=== PATIENT | female | born 1980 | race Caucasian/White ===

== ENCOUNTER 2018-05-29 11:37 | Day surgery (SDC) | payer BC, OTHER ==
[~2018-05-29 11:37] MED LIST: BUPIVACAINE HCL/PF (5 MG/ML) 30 ML VIAL IJ ONE; ceFAZolin SODIUM 1 GM VIAL IVPB ONE
--- NOTE | 2018-05-29 11:58 | PDOC ---
History of Present Illness - General Chief Complaint: Nausea/Vomiting Stated Complaint: NAUSEA/VOMITING Time Seen by Provider: 05/29/18 11:48 - History of Present Illness Initial Comments: 05/29/18 12:50 37 years old past medical history significant for anemia status post lap band 2007 presents to the ED were progressively worsening abdominal discomfort. Patient was seen and evaluated by her bariatric surgeon Dr. Miller and is scheduled for lap band removal today. Presents to the ED for medical screening examination and preoperative clearance Patient complaining of abdominal discomfort which is epigastric in nature persistent constant Past History - Past Medical History Allergies/Adverse Reactions: Allergies Allergy/AdvReac Type Severity Reaction Status Date / Time latex Allergy Mild Rash Verified 05/29/18 12:19 Home Medications: Ambulatory Orders Cyanocobalamin Vit B-12 Inj. [Redisol] 1,000 mcg IJ MONTHLY 05/29/18 Famotidine [Pepcid -] 20 mg PO BID #14 tablet 05/29/18 Ondansetron HCl [Zofran] 8 mg PO BID #30 tablet 05/29/18 Oxycodone HCl/Acetaminophen [Percocet 5-325 mg Tablet] 1 - 2 tab PO Q6H PRN #20 tab MDD 8 05/29/18 Anemia: Yes Asthma: No Cancer: No Cardiac Disorders: No COPD: No Diabetes: No HTN: No Seizures: No Thyroid Disease: No - Surgical History Cholecystectomy: Yes - Reproductive History (#): 1 Para: 0 - Suicide/Smoking/Psychosocial Hx Smoking History: Never smoked Have you smoked in the past 12 months: No Hx Alcohol Use: No Drug/Substance Use Hx: No Substance Use Type: None Hx Substance Use Treatment: No Review of Systems - Review of Systems Comments:: 05/29/18 18:29 ROS: A complete review of 10 out of 10 review of systems is taken and is negative apart from what is previously mentioned below and in the HPI. *Physical Exam - Physical Exam Comments: 05/29/18 18:29 Vitals: Triage Vital signs reviewed General Appearance: no acute distress, well nourished well developed, Head: Atraumatic, Eyes: Pupils equal reactive round, extraocular movement intact Neck: Supple;No Nucal rigidity Chest Wall: Nontender Cardiac: Regular rate and rhythym, no murmurs, no rubs, no gallops, Lungs: Clear to auscultation bilateral, good air movement bilaterally, Abdomen: Soft, non distended, normal bowel sounds, non tender to palpation Extremities: Full range of motion to all extremities, no cyanosis, clubbing, or edema Skin: Warm and dry, no rashes or lesions, no rash, no petechiae Psych: normal mood, normal affect ED Treatment Course - LABORATORY CBC & Chemistry Diagram: 05/29/18 11:24 05/29/18 11:24 Medical Decision Making - Medical Decision Making 05/29/18 18:30 Case d/w Dr. Miller. We'll send preop labs and patient will transfer to or for lap band removal *DC/Admit/Observation/Transfer Diagnosis at time of Disposition: Abdominal pain Qualifiers: Abdominal location: unspecified location Qualified Code(s): R10.9 - Unspecified abdominal pain - Discharge Dispostion Condition at time of disposition: Good Decision to Admit order: Yes - Prescriptions - Referrals - Patient Instructions - Post Discharge Activity
[2018-05-29 12:18] VITALS: BMI 31.6
[2018-05-29 12:33] LABS: BASO % 0.7 % (0-2.0); EOS % 1.1 % (0-4.5); HEMATOCRIT 40.4 % (32.4-45.2); HEMOGLOBIN 13.1 GM/dL (10.7-15.3); LYMPH % 23.2 % (8-40); MCH 27.4 pg (25.7-33.7); MCHC 32.5 g/dl (32.0-36.0); MEAN CELL VOLUME 84.2 fl (80-96); MEAN PLT VOLUME 8.1 fl (7.5-11.1); MONO % 9.2 % (3.8-10.2); NEUT % 65.8 % (42.8-82.8); PLATELET COUNT 314 K/MM3 (134-434); RDW 13.2 % (11.6-15.6); WHITE BLOOD COUNT 7.5 K/mm3 (4.0-10.0)
[2018-05-29 12:44] LABS: INR 1.05 (0.82-1.09); PROTHROMBIN TIME (PATIENT) 11.9 SEC (9.7-13.0)
[2018-05-29 12:46] LABS: ACTIVATED PTT 30.3 SECONDS (25.2-36.5)
[2018-05-29 12:53] LABS: ALBUMIN 3.8 g/dl (3.4-5.0); ANION GAP 6 (8-16); BILIRUBIN,TOTAL 0.5 mg/dL (0.2-1.0); BLOOD UREA NITROGEN 11 mg/dL (7-18); CALCIUM 8.7 mg/dL (8.5-10.1); CHLORIDE 108 mmol/L (98-107); CO2 30 mmol/L (21-32); CREATININE 0.6 mg/dL (0.55-1.02); GLUCOSE,RANDOM 87 mg/dL (74-106); POTASSIUM 4.2 mmol/L (3.5-5.1); SGOT/AST 9 U/L (15-37); SGPT/ALT 15 U/L (12-78); SODIUM 144 mmol/L (136-145); TOT PROT 7.3 g/dl (6.4-8.2)
[2018-05-29 12:54] LABS: ALK PHOS 76 U/L (45-117)
[2018-05-29] MEDS ORDERED: MIDAZOLAM HCL 2 MG/2 ML SINGLE DOSE VIAL ONE (13:31)
[2018-05-29] MEDS ORDERED: ceFAZolin SODIUM 1 GM VIAL ONE (13:44)
[2018-05-29] MEDS ORDERED: DEXAMETHASONE SOD PHOSPHATE 4 MG/1 ML VIAL ONE (13:44)
[2018-05-29] MEDS ORDERED: ROCURONIUM BROMIDE 50 MG/5 ML VIAL ONE (13:49)
[2018-05-29] MEDS ORDERED: PROPOFOL 20 ML ONE (13:49)
[2018-05-29] MEDS ORDERED: ceFAZolin SODIUM 1 GM VIAL IVPB ONE (13:58)
[2018-05-29] MEDS ORDERED: GLYCOPYRROLATE 0.2 MG/1 ML VIAL ONE (15:16)
[2018-05-29] MEDS ORDERED: NEOSTIGMINE METHYLSULFATE 0.5 MG/ML - 10 ML MDV ONE (15:16)
[2018-05-29] MEDS ORDERED: BUPIVACAINE HCL/PF (5 MG/ML) 30 ML VIAL IJ ONE (15:18)
[2018-05-29] MEDS ORDERED: ONDANSETRON 4 MG/2 ML VIAL IVPUSH PRN (15:29)
[2018-05-29] MEDS ORDERED: oxyCODONE HCL 5 MG TABLET PO PRN (15:29)
[2018-05-29] MEDS ORDERED: LACTATED RINGERS SOLUTION 1,000 ML IV SCH (15:30)
--- NOTE | 2018-05-29 15:57 | OP ---
Operative Note - Note: Operative Date: 05/29/18 Pre-Operative Diagnosis: malfunctioning lap band, nausea and upper abdominal pain Operation: removal of lap band and port Surgeon: Mk Miller Economic History Teacher: Edith Worthy Anesthesiologist/SLUDGE MILL OPERATOR: Keith Paige Anesthesia: General Specimens Removed: band and port Estimated Blood Loss (mls): 20 Fluid Volume Replaced (mls): 1,000 Operative Report Dictated: Yes
--- NOTE | 2018-05-29 16:12 | SURG ---
Surgery Hot Knife Cutter Note Hot Knife Cutter: Edith Worthy PA-C Date of Service: 05/29/18 Diagnosis: malfunctioning lap band, nausea and upper abdominal pain Procedure: laparoscopic removal of lap band and port I was present for the entirety of the operative procedure. For further detail, please refer to operative report. Visit type - Case Type Case Type: ED Admission - Emergency Emergency Visit: Yes Care time: The patient presented to the Emergency Department on the above date and was hospitalized for further evaluation of their emergent condition. - New patient This patient is new to me today: Yes Date on this admission: 05/29/18
[2018-05-29] MEDS ORDERED: ONDANSETRON 4 MG/2 ML VIAL IVPUSH ONE (16:30)
[2018-05-29] MEDS ORDERED: ONDANSETRON 4 MG/2 ML VIAL ONE (16:45)
[2018-05-29] MEDS ORDERED: PROMETHAZINE HCL 25 MG/1 ML VIAL ONE (17:29)
[2018-05-29] MEDS ORDERED: PROMETHAZINE HCL 25 MG/1 ML VIAL IVPUSH ONE (17:35)
--- NOTE | 2018-05-29 17:46 | CONSULT ---
Consult Consult Specialty:: Bariatric Surgery Reason for Consultation:: Nausea/vomiting/epigastric pain - History of Present Illness History of Present Illness: 37 female s/p gastric baypass, s/p band over bypass presents with nausea/ vomiting and epigastric pain. Has had difficulty with her lap band + Dysphagia Symptoms are from her lap band and have persisted due to band malfunction No fevers/Chills - History Source History Provided By: Patient Limitations to Obtaining History: No Limitations - Past Medical History ...LMP: 07/14/13 - Past Surgical History Past Surgical History: Yes: Bariatric Surgery - Alcohol/Substance Use Hx Alcohol Use: No - Smoking History Smoking history: Never smoked Have you smoked in the past 12 months: No Home Medications - Allergies Allergies/Adverse Reactions: Allergies Allergy/AdvReac Type Severity Reaction Status Date / Time latex Allergy Mild Rash Verified 05/29/18 12:19 - Home Medications Home Medications: Ambulatory Orders Cyanocobalamin Vit B-12 Inj. [Redisol] 1,000 mcg IJ MONTHLY 05/29/18 Famotidine [Pepcid -] 20 mg PO BID #14 tablet 05/29/18 Ondansetron HCl [Zofran] 8 mg PO BID #30 tablet 05/29/18 Oxycodone HCl/Acetaminophen [Percocet 5-325 mg Tablet] 1 - 2 tab PO Q6H PRN #20 tab MDD 8 05/29/18 Family Disease History - Family Disease History Family History: Unremarkable Review of Systems - Review of Systems Constitutional: denies: Chills, Fever HENT: reports: No Symptoms Neck: reports: No Symptoms Cardiovascular: reports: No Symptoms Respiratory: reports: No Symptoms Gastrointestinal: reports: Abdominal Pain, Dysphagia, Nausea, Vomiting Neurological: reports: No Symptoms Pain Intensity: 3 Physical Exam Vital Signs: Vital Signs Temperature 98.0 F 05/29/18 16:45 Pulse Rate 72 05/29/18 16:45 Respiratory Rate 16 05/29/18 16:45 Blood Pressure 120/72 05/29/18 16:45 O2 Sat by Pulse Oximetry (%) 97 05/29/18 16:30 Constitutional: Yes: Calm HENT: Yes: WNL Neck: Yes: Supple Cardiovascular: Yes: Regular Rate and Rhythm Respiratory: Yes: CTA Bilaterally Gastrointestinal: Yes: Soft. No: Tenderness, Rebound Neurological: Yes: Alert, Oriented Labs: CBC, BMP 05/29/18 11:24 05/29/18 11:24 Problem List - Problems (1) Dysphagia Code(s): R13.10 - DYSPHAGIA, UNSPECIFIED Qualifiers: Dysphagia type: unspecified Qualified Code(s): R13.10 - Dysphagia, unspecified (2) Nausea & vomiting Code(s): R11.2 - NAUSEA WITH VOMITING, UNSPECIFIED Qualifiers: Vomiting type: unspecified (3) Gastric band malfunction Code(s): K95.09 - OTHER COMPLICATIONS OF GASTRIC BAND PROCEDURE (4) Epigastric abdominal pain Code(s): R10.13 - EPIGASTRIC PAIN Assessment/Plan Gastric band malfunction with symptoms For Laparoscopic possible open removal of gastric band, port and components, EGD
[2018-05-29 18:45] VITALS: BP 113/72; PULSE 68; TEMP 98
--- NOTE | 2018-05-29 20:11 | OP ---
DATE OF OPERATION: 05/29/2018 SURGEON: Eleuterio Miller MD SITE LEASING AGENT: SHAYLEE Hedrick PREOPERATIVE DIAGNOSES: 1. Nausea. 2. Vomiting. 3. Dysphagia. 4. Gastric band malfunction. POSTOPERATIVE DIAGNOSES: 1. Nausea. 2. Vomiting. 3. Dysphagia. 4. Gastric band malfunction. PROCEDURES: 1. Diagnostic laparoscopy. 2. Laparoscopic removal of gastric band, port, and components. 3. Upper endoscopy/esophagogastroduodenoscopy. SPECIMENS: Gastric band, port, and components. ESTIMATED BLOOD LOSS: 5 mL. DRAINS: None. ANESTHESIA: GET. REASON FOR PROCEDURE: This is a 37-year-old female, presented to the emergency room for nausea, vomiting, and dysphagia due to a malfunctioning gastric band. She had a prior gastric band placed over a Zack-en-Y gastric bypass at an outside institution. She presented to the ER and, because of her symptoms, she was consented for a laparoscopic, possible open, removal of the gastric band, port, and components with upper endoscopy/EGD. The risks and benefits of the procedure were explained. These included bleeding, infection, hernia, VA, DVT, PE, injury to surrounding structures including the esophagus, stomach, small bowel, duodenum, liver, spleen, colon, vessel injury, nerve injury, as well as other intraabdominal organs, perforation, leak, abscess, hematoma, seroma, stricture, persistent dysphagia, as some of the complications. She understood and signed informed consent. DESCRIPTION OF PROCEDURE: The patient was placed supine on the operating room table. She underwent general endotracheal intubation. The arms were brought out 90 degrees and secured. A foot board was placed and the legs were secured laterally. An OG tube was placed by Anesthesia. The abdomen was prepped and draped in the usual sterile fashion. Timeout was performed. An incision was made superior into the right of the umbilicus and a Veress needle inserted. Pneumoperitoneum was established. Subsequently the Veress needle was removed and optical 5-mm trocars were placed under direct visualization. The abdomen was inspected and a 2nd 5-mm trocar placed inferiorly and to the left of the initial trocar at the level of the prior port a 15-mm trocar was placed. A stab wound was made in the subxiphoid incision and a Shweta clamp used to dilate the tract. A Kiara liver retractor was used to retract the liver. This was secured to the post at the bedside. The patient was placed in steep reverse Trendelenburg position. The band tubing was noted and followed towards the band. The band was followed and freed using electrocautery with a hook dissector. The band was circumferentially freed, staying away from stomach as well as bowel. Once the band was freed adequately, the tubing was cut with sheers. The band was cut, allowing it to be opened and removed from its position around the prior gastric bypass. The gastric band was removed from the abdominal cavity and sent off the field. Hemostasis was noted. No injuries were noted. Surgicel dressing was placed within the field to add to the hemostasis. Irrigation and suction was performed until clear. Liver retractor was removed. Upper endoscopy was performed, and no evidence of injury, perforation, leak, or obstruction were noted. The stomach was suctioned and the scope removed. The area of the port was then opened up further and dissected down to the level of the port. The port was circumferentially dissected, removed, and sent off the field. The tubing was noted to match. Hemostasis was achieved and irrigation was performed. The deep subcutaneous tissue was closed at this level with 0 Vicryl suture followed by a 3-0 Vicryl suture. All skin incisions were injected with Marcaine and closed with 4-0 Biosyn. The patient tolerated the procedure well, was transferred to recovery room in stable condition. ELEUTERIO MILLER M.D. [facility]Y/[id number]
--- NOTE | 2018-05-29 21:40 | EKG ---
Test Reason : Blood Pressure : / mmHG Vent. Rate : 083 BPM Atrial Rate : 083 BPM P-R Int : 154 ms QRS Dur : 090 ms QT Int : 366 ms P-R-T Axes : 033 048 023 degrees QTc Int : 430 ms NORMAL SINUS RHYTHM WITH SINUS ARRHYTHMIA NORMAL ECG WHEN COMPARED WITH ECG OF 25-MAY-2018 16:57, NO SIGNIFICANT CHANGE WAS FOUND Confirmed by MD MINNA, ALISA ([id number]) on 05/29/2018 9:39:45 PM Referred By: Confirmed By:ALISA BUITRAGO MD
== END 2018-05-29 18:30 | disposition home or self-care (01) ==
LOC: JER 11:37 → JASUSAT 11:58
PROVIDERS: ATTEND Surgery
PROC: 0DP60CZ Removal of Extraluminal Device from Stomach, Open Approach (ICD-10-PCS; 2018-05-29)
PROC: 0DJ08ZZ Inspection of Upper Intestinal Tract, Via Natural or Artificial Opening Endoscopic (ICD-10-PCS; 2018-05-29)
PROC: 0DP64CZ Removal of Extraluminal Device from Stomach, Percutaneous Endoscopic Approach (ICD-10-PCS; principal; 2018-05-29 13:00)
DX: T85.518A Breakdown (mechanical) of other gastrointestinal prosthetic devices, implants and grafts, initial encounter (principal); R11.2 Nausea with vomiting, unspecified; R13.10 Dysphagia, unspecified; Y93.89 Activity, other specified; Y92.89 Other specified places as the place of occurrence of the external cause
CPT/HCPCS: 36415; 80053; 84703; 85025; 85610; 85730; 86850; 86900; 86901; 93005; 93010; 99284-25

== ENCOUNTER 2018-06-05 07:01 | Day surgery (SDC) | payer BC, OTHER ==
[2018-06-05 07:34] VITALS: TEMP 98.1; BMI 31.2
[2018-06-05] MEDS ORDERED: LIDOCAINE HCL/PF 2% SDV 5ML VIAL ONE (07:58)
[2018-06-05] MEDS ORDERED: PROPOFOL 20 ML ONE ×2 (07:58)
[2018-06-05 15:03] VITALS: BP 125/70; PULSE 69
== END 2018-06-05 09:20 | disposition home or self-care (01) ==
LOC: JASU-ENDO 07:01
PROVIDERS: ATTEND Surgery
PROC: 0DJ08ZZ Inspection of Upper Intestinal Tract, Via Natural or Artificial Opening Endoscopic (ICD-10-PCS; principal; 2018-06-05 08:00)
DX: R63.5 Abnormal weight gain (principal); Z98.84 Bariatric surgery status
CPT/HCPCS: 84703

== ENCOUNTER 2019-02-21 06:59 | Day surgery (SDC) | payer BC, OTHER ==
[2019-02-20 14:30] VITALS: BMI 31.8
[2019-02-21 07:38] VITALS: TEMP 98.3
[2019-02-21 09:03] VITALS: BP 118/75; PULSE 76
--- NOTE | 2019-02-21 09:04 | OP ---
DATE OF OPERATION: 02/21/2019 SURGEON: Eleuterio Miller MD PROCEDURE: Upper endoscopy/esophagogastroduodenoscopy. PREOPERATIVE DIAGNOSES: Weight regain status post bariatric surgery. POSTOPERATIVE DIAGNOSES: Dilated gastric outlet to 2.5 cm and dilated gastric pouch. SPECIMEN: None. ESTIMATED BLOOD LOSS: None. ANESTHESIA: MAC. REASON FOR PROCEDURE: This is a 38-year-old female who had a Zack-en-Y gastric bypass followed by a gastric band followed by a removal of a gastric band for nausea, vomiting, and complications followed by an endoscopic overstitch for weight regain who presented to the office for again weight regain. An endoscopy was recommended to evaluate for possible re-dilation of her gastric outlet and possible pouch. The risks and benefits of the procedure were explained. These included bleeding, infection, injury to surrounding structures including the oral cavity, esophagus, stomach, GE junction, bowel, duodenum, jejunum, perforation, abscess, MN, DVT, PE, and some other complications. She understood and signed informed consent. DESCRIPTION OF PROCEDURE: Patient was placed in the left lateral decubitus position. She underwent MAC by Anesthesia. Bite-block was placed. Time-out was performed. The endoscope was placed into the oral cavity, inserted into the esophagus, GE junction, into the gastric pouch and up to the level of the gastrojejunostomy/gastric outlet. The gastric outlet was noted to be dilated to approximately 2.5 cm, which appears to have re-stretched. In addition, the gastric pouch also was noted to look enlarged, as well. These are possible reasons for weight regain. The stomach was suctioned, and the scope fully removed. Patient tolerated the procedure well, transferred to the recovery room in stable condition. RECOMMENDATIONS: Combination approach to weight regain after bariatric surgery including medications, diet, exercise, nutrition evaluation, as well as possible re-overstitch or [id number]. ELEUTERIO MILLER M.D. [facility]/[id number]
== END 2019-02-21 09:10 | disposition home or self-care (01) ==
LOC: JASU-ENDO 06:59
PROVIDERS: ATTEND Surgery
PROC: 0DJ08ZZ Inspection of Upper Intestinal Tract, Via Natural or Artificial Opening Endoscopic (ICD-10-PCS; principal; 2019-02-21 08:00)
DX: K31.89 Other diseases of stomach and duodenum (principal); R63.5 Abnormal weight gain; Z98.84 Bariatric surgery status
CPT/HCPCS: 84703

== ENCOUNTER 2022-11-24 00:38 | Emergency (ER) | payer BC ==
[2022-11-24 00:45] VITALS: BP 129/75; RESP 20; BMI 26.5
[2022-11-24] MEDS ORDERED: ACETAMINOPHEN 1000 MG/100 ML BAG IVPB ONE (01:26)
[2022-11-24] MEDS ORDERED: ACETAMINOPHEN INJECTION 100 ML IVPB ONE (01:26)
[2022-11-24] MEDS ORDERED: ONDANSETRON 4 MG/2 ML VIAL ONE (01:26)
[2022-11-24] MEDS ORDERED: ONDANSETRON 4 MG/2 ML VIAL IVPUSH ONE (01:27)
[2022-11-24 02:13] VITALS: PULSE 100; TEMP 101
== END 2022-11-24 02:12 | disposition home or self-care (01) ==
LOC: JER 00:38
PROC: 3E0333Z Introduction of Anti-inflammatory into Peripheral Vein, Percutaneous Approach (ICD-10-PCS; principal; 2022-11-24)
PROC: 3E033GC Introduction of Other Therapeutic Substance into Peripheral Vein, Percutaneous Approach (ICD-10-PCS; 2022-11-24)
DX: J09.X2 Influenza due to identified novel influenza A virus with other respiratory manifestations (principal); R50.9 Fever, unspecified; R05.1 Acute cough; J02.9 Acute pharyngitis, unspecified
CPT/HCPCS: 0241U-QW; 99284-25